=== PATIENT | male | born 1975 | race Caucasian/White ===

== ENCOUNTER → 2017-05-15 | Outpatient (CLI) | payer BC ==
[~2017-05-15] MED LIST: AMI10 PO; AMOX-559 PO; ASC500 PO; ASPI-1471 PO; ATOR20TA22 PO; FISH OIL1 CAP PO; GLUC750T10 PO; LISI-347 PO; MULT-1335 PO; NAPR500T75 PO; ONDA4TAB97 PO; PSEU-287 PO; VITA-129 PO
== END ==
LOC: RESP 20:51
PROVIDERS: ATTEND Nurse Practitioner Family
DX: G47.33 Obstructive sleep apnea (adult) (pediatric) (principal); E66.9 Obesity, unspecified

== ENCOUNTER → 2018-07-20 | Outpatient (REF) ==
[~2018-07-20] MED LIST changes: -PSEU-287 PO; +PSEU120T69 PO
== END ==
LOC: AUD 13:40
PROVIDERS: ATTEND Nurse Practitioner Family
DX: Z01.12 Encounter for hearing conservation and treatment (principal)
CPT/HCPCS: 92552

== ENCOUNTER → 2018-09-02 | Outpatient (CLI) | payer BC ==
--- NOTE | 2018-09-05 17:52 | RT HOLTER TEST ---
FACILITY: [facility] PATIENT NAME: STONE KEMP : [id number] MR: [id number]: [id number] EXAM DATE: ORDERING PHYSICIAN: LORENA MEDINA TECHNOLOGIST: Kentrell Hook-up date: 2018-09-02 13:03:00 Duration: 24:00:00 Test Indications: ARRYTHMIAS Medications: LORTADINE ATORVASTATIN LISINOPRIL/HCTZ 289010 QRS complexes 1 Ventricular ectopics which represent <1 % of total QRS comp. 8 Supraventricular ectopics which represent <1 % of total QRS comp. * Paced QRS complexes which represent % of total QRS comp. VENTRICULAR ECTOPY 1 Isolated 0 Bigeminal Cycles 0 Couplets 0 Runs 0 Beats in Runs * Beats LONGEST at * BPM at :: -- * Beats FASTEST at * BPM at :: -- SUPRAVENTRICULAR ECTOPY 8 Isolated 0 Couplets 0 Runs 0 Beats in Runs * Beats LONGEST at * BPM at :: -- * Beats FASTEST at * BPM at :: -- HEART RATES 41 MIN at 02:28:39 2018-09-03 76 AVG 134 MAX at 13:17:36 2018-09-02 LONGEST RR 1.592 secs at 03:01:49 2018-09-03 Channel 2 -12.800 mm MIN at 13:03:00 2018-09-02 -12.800 mm MAX at 13:03:00 2018-09-02 Channel 3 -12.800 mm MIN at 13:03:00 2018-09-02 -12.800 mm MAX at 13:03:00 2018-09-02 Maximum heart rate (HR) was sinus tachycardia at 134 beats per minute (BPM). Minimum HR was sinus bra cycardia at 41 BPM. The patient had sinus arrhythmia at times as well. There were 3 patient noted events. Two were associated with sinus tac hycardia (115 BPM and 127 BPM). One was associated with normal sinus rhythm at 81 BPM. There was one isolated PVC. There were 8 isolated PACs. Confirmed by BRANDON GREEN ([id number]) on 09/05/2018 5:52:12 PM Referred By: Overread By: BRANDON GREEN
== END ==
LOC: RESP 01:30
PROVIDERS: ATTEND Internal Medicine Cardiovascular Disease
DX: R00.2 Palpitations (principal)
CPT/HCPCS: 93225; 93226